=== PATIENT | male | born 1945 | race Caucasian/White ===

== ENCOUNTER 2018-10-26 18:39 | Inpatient (IN) ==
[2018-10-26 19:24] LABS: PTT 38.8 Seconds (22.3-41.8)
[2018-10-26 19:26] LABS: BASO# 0.03 X1000 (0.0-0.2); BASO% 0.2 % (0.0-0.8); HEMOGLOBIN 6.1 g/dL (14.0-18.0); IMM GRAN# 0.14 X1000 (0.0-0.04); IMM GRAN% 0.9 % (0.0-0.5); LYMPH# 2.12 X1000 (1.2-3.4); LYMPH% 13.9 % (20.5-51.1); MCH 32.1 PG (27-31); MCHC 33.9 g/dL (33-37); MCV 94.7 FL (81-99); MONO# 0.99 X1000 (0.11-0.59); MONO% 6.5 % (1.7-9.3); NEUT# 11.98 X1000 (1.4-6.5); NEUT% 78.5 % (42.2-75.2); PLT 287 X1000 (130-400); WBC 15.26 X1000 (4.8-10.8)
[2018-10-26 19:29] LABS: INR 6.07; PROTIME 57.9 Seconds (11.0-16.0)
[2018-10-26] MEDS ORDERED: VITAMIN K SUBQ ONE (19:36)
--- NOTE | 2018-10-26 20:13 | Diag Imaging Result Doc PS360 ---
EXAM: CT ABD/PELVIS W/IV CONT ONLY INDICATION: gi bleed TECHNIQUE: This exam was performed using automated exposure control, adjustment of mA or kV according to patient size, and/or use of iterative reconstruction technique. COMPARISON: 07/09/2018 FINDINGS: There is mild subsegmental atelectasis at the lung bases. The gallbladder is contracted and is unremarkable, otherwise. The liver, spleen, pancreas, and adrenal glands are unremarkable. There is a small left renal cyst. The kidneys are unremarkable, otherwise. The urinary bladder is unremarkable. The appendix is normal. There is no evidence of bowel wall thickening. The remainder of the GI tract is unremarkable. There is a stable stent graft repaired abdominal aortic aneurysm. No focal inflammatory changes, free abdominal gas, or free fluid is identified. There is spondylosis throughout the spine. The bony structures are intact. IMPRESSION: Essentially stable CT of the abdomen and pelvis with no evidence of acute pathology. Incidental/nonacute findings detailed above. Electronically signed by Jonnie Melissa 10/26/2018 8:11 PM
[2018-10-26 20:19] LABS: AGAP 14; ALB/GLOB RATIO 1.6; ALBUMIN 3.3 g/dL (3.5-5.0); ALKALINE PHOSPHATASE 36 U/L (32-122); BUN 56 mg/dL (8-22); CALCIUM 8.6 mg/dL (8.8-10.2); CHLORIDE 98 mmol/L (98-107); COSMO 284; CREATININE 1.1 mg/dL (0.7-1.2); ESTIMATED GFR > 60; GLUCOSE 137 mg/dL (70-104); GOT 12 U/L (10-34); GPT 14 U/L (10-44); POTASSIUM 4.8 mmol/L (3.5-5.1); SODIUM 133 mmol/L (136-145); TCO2 21 mmol/L (25-35); TOTAL BILIRUBIN 0.26 mg/dL (0.20-1.00); TOTAL PROTEIN 5.3 g/dL (6.3-8.3)
[2018-10-26] MEDS ORDERED: SODIUM CHLORIDE 0.9% INJ ONE (20:40)
[2018-10-26] MEDS ORDERED: PROTONIX IV ONE (20:40)
--- NOTE | 2018-10-26 20:43 | PROVIDER DOCUMENTATION ---
This chart was entered by Niama Mancini Scribe, acting as scribe for Viral Flowers MD. HPI-Abdominal Pain/GI Problem - General Chief Complaint: Abnormal Lab[s] Stated Complaint: GI BLEED Time Seen by Provider: 10/26/18 19:06 Source: patient, EMS Allergies/Adverse Reactions: Patient Allergies Allergy/AdvReac Type Severity Reaction Status Date / Time cefazolin [From Ancef] Allergy SWELLING Verified 05/29/18 07:26 cephalexin [From Keflex] Allergy SWELLING Verified 05/29/18 07:26 hydromorphone [From Dilaudid] AdvReac Unknown Verified 10/06/18 09:54 Home Medications: Home Medication List Medication Instructions Recorded Confirmed Last Taken Type Pantoprazole [Protonix] 40 mg PO DAILY@0700 03/20/16 10/06/18 05/28/18 History Spironolactone 25 mg PO DAILY 03/20/16 10/06/18 05/28/18 History Apixaban [Eliquis] 5 mg PO BID 05/21/18 10/06/18 05/25/18 History - History of Present Illness-ABD Nature of Presenting Problems: Pt presents to ED w/ reports of lowering H&H and blood in stool for the last 2 days. Pt sts that he feels okay, Pt is a poor historian and is unsure about his hx and exactly why he is here. Pt arrived to ED via EMS from nursing facility. hx of Abdominal Pain Onset Location: reports: LLQ, epigastric Pain Radiation: reports: no radiation Severity in ED: reports: mild Onset/Duration: reports: 2 days ago Timing: reports: still present Activities at Onset: reports: none Exposure to sick contacts?: No Modifying Factors: improves with: nothing Associated Symptoms: reports: denies symptoms Dark Stools Present?: reports: other (reported blood, but not in detail) Bruising or Bleeding Gums?: No Similar Symptoms Previously?: No Recently seen or treated by another doctor?: No Review of Systems - Adult - REVIEW OF SYSTEMS - ADULT Constitutional: denies: chills, fever Eyes: reports: no symptoms reported Ears, Nose, Mouth & Throat: reports: no symptoms reported Cardiovascular: denies: chest pain, edema Respiratory: reports: no symptoms reported. denies: cough, shortness of breath, wheezing Gastrointestinal: reports: abdominal pain. denies: nausea, vomiting Genitourinary: reports: no symptoms reported Musculoskeletal: reports: no symptoms reported. denies: bone pain, back pain Integumentary: reports: no symptoms reported Neurological: reports: no symptoms reported. denies: dizziness/vertigo, headache/migraines Psychiatric: reports: no symptoms reported Endocrine: reports: no symptoms reported Hematologic/Lymphatic: reports: no symptoms reported Allergic/Immunologic: reports: no symptoms reported All Other Systems: Reviewed and Negative Past History - Adult - PAST MEDICAL HISTORY-ADULT Review of Records: reports: Old Records Reviewed, Nursing Assessment Review, Medications Reviewed, Social history reviewed & non-contributory. Major Childhood Illnesses: reports: denies history Cardiovascular: reports: HTN, hyperlipidemia Endocrine/Immune: reports: Diabetes - IMMUNIZATION STATUS Childhood Immunizations: See Nurse Assessment Flu Vaccine: See Nurse Assessment - FAMILY HISTORY Family History: reviewed, not pertinent - SOCIAL HISTORY Smoking: denies, non-smoker Substance Use: none/never Alcohol Use Frequency: rarely Living Situation: care facility Physical Exam-General - PHYSICAL EXAM-ADULT Initial Vital Signs Reviewed: Yes - CONSTITUTIONAL General Appearance: appears well, alert, no apparent distress - EYES Eyes: PERRL/EOMI, pink conjunctivae - HEAD, EARS, NOSE, MOUTH & THROAT HENMT: normocephalic/atraumatic, moist mucous membranes, normal ENT inspection, TMs normal, pharynx normal - NECK Neck: non-tender, full range of motion, supple, normal inspection - RESPIRATORY Respiratory: lungs clear - CARDIOVASCULAR Cardiovascular: regular rate, rhythm - GASTROINTESTINAL (ABDOMEN) Abdominal Exam: normal bowel sounds, soft, other (pt is tender over general abd, but more over LLQ and epigastric areas upon palpation) - LYMPHATIC Lymphatic: no adenopathy - MUSCULOSKELETAL Back Exam: normal inspection, no CVA tenderness, no vertebral tenderness Extremity: normal range of motion, non-tender, normal gait, normal inspection - SKIN Integumentary: normal color, warm/dry - NEUROLOGIC Neurologic: grossly normal - PSYCHIATRIC Psych/Mental Status: normal mood/affect, normal thought content, normal thought process, other (Pt is a poor historian and is minimally confused) Progress - PLAN OF CARE/RESULTS Progress/Plan/Lab Results: Vital Signs - 8 hr 10/26/18 18:53 Temperature 98.2 F Pulse Rate 70 Respiratory Rate 18 Blood Pressure 109/69 O2 Sat by Pulse Oximetry 100 Laboratory Results - last 24 hr 10/26/18 10/26/18 18:55 18:55 WBC 15.26 H RBC 1.90 L Hgb 6.1 L Hct 18.0 L MCV 94.7 MCH 32.1 H MCHC 33.9 RDW Std Deviation 13.0 Plt Count 287 MPV 11.0 H Immature Gran % (Auto) 0.9 H Neut % (Auto) 78.5 H Lymph % (Auto) 13.9 L Hanson % (Auto) 6.5 Eos % (Auto) 0.0 Baso % (Auto) 0.2 Immature Gran # (Auto) 0.14 H Neut # (Auto) 11.98 H Lymph # (Auto) 2.12 Hanson # (Auto) 0.99 H Eos # (Auto) 0.00 Baso # (Auto) 0.03 PT 57.9 H INR 6.07 H* PTT (Actin FS) 38.8 Orders Category Date Time Status CT ABD/PELVIS W/IV CONT ONLY [CT] Stat Exams 10/26/18 19:11 Ordered CBC WITH ELECTRONIC DIFF [HEME] Stat Lab 10/26/18 18:55 Completed COMPREHENSIVE METABOLIC PANEL [CHEM] Stat Lab 10/26/18 18:55 Received OCCULT BLOOD SCREENING [STOOL] Stat Lab 10/26/18 19:07 Uncollected PT [PROTIME WITH INR] [COAG] Stat Lab 10/26/18 18:55 Completed PTT [COAG] Stat Lab 10/26/18 18:55 Completed UA [URINALYSIS] [URINALYSIS] Stat Lab 10/26/18 19:07 Uncollected Result Diagrams: 10/26/18 18:55 10/26/18 18:55 - CONSULTS/PCP/HOSPITALIST Notification #1 *Consult/PCP/Hospitalist*: [place] Time Discussed: 20:35 Consult Disposition: Will see in ED, Admit Departure - Departure Date of Disposition Decision: 10/26/18 Time of Disposition Decision: 20:41 DIAGNOSIS: GI bleeding, INR (international normal ratio) abnormal, Blood loss anemia Disposition: ADMITTED INPATIENT 09 Certified Medical Emergency: Emergent Condition: Serious - Critical Care Note This patient required my direct & personal management of CC.: Yes Total Time (mins): 60 Critical Care Statement: This patient required my direct personal management to treat or rule out processes, the absence of which, could potentiallly result in sudden, clinically significant life or limb threatening deterioration. Attestation - Physician/ CONNIE Attestation Patient care was provided by Advanced Practice Provider:: No The physician spent face to face time with patient:: Yes Advanced Practice Provider documentation review:: Supervising physician onsite and consulted in the evaluation and care of this patient. The physician did have a face to face encounter with the patient. This chart was documented by the indicated scribe, (Naima Mancini, Alena) and accurately reflects the services I performed and decisions made by me, Viral Flowers MD, as attested by the provider's signature.
[2018-10-26] MEDS ORDERED: NS 1,000 ML IV ONE (21:29)
--- NOTE | 2018-10-26 22:14 | HISTORY AND PHYSICAL ---
PRIMARY CARE PHYSICIAN: No primary care physician. REASON FOR ADMISSION: Melenic stool 4 days. Tadeo Mccoy 73-year-old male past medical history of atrial fibrillation, peripheral arterial disease, hypertension, recent CVA 2 weeks ago. He was admitted to [facility] then subsequently discharged to fdc in our area. He was brought in today on account of having heme positive stools. He had been having 4 days history of frequent melenic stools which led to screening him for Hemoccult stools. On account of this being positive he was referred to the ER to address this issue. The patient says he has been feeling having nausea but no vomiting. He has been having some vague abdominal pain, no specific relieving or aggravating factors. He said the melenic stools have stopped today presumably because yesterday according to his he was given some medication for the stools. He admits to feeling weak and dizzy and complains of thirst. He has a longstanding history of dysphagia to solids and usually gets his esophagus "stretched" by GI in the past per the family. He does admit to having shortness of breath with mild exertion over the last couple of days. No bleeding from any other orifice. No chest pain or palpitations. No anginal-type symptoms. REVIEW OF SYSTEMS: No fever, chills, polyuria, 12 system review was done. Positive findings per HPI. ALLERGIES: Cephalosporins, Dilaudid and Swann and Seroquel. HOME MEDICATIONS: Yet to be reconciled. FAMILY HISTORY: Notable for heart disease but no diabetes or bleeding diaphysis. SOCIAL HISTORY: He smokes 1 pack a day but since the [facility]dc he has been on the patch. No alcohol, illicit drug use. SURGICAL HISTORY: He has had AAA repair, spinal surgery, bilateral knee surgery, pacemaker insertion, cataract surgery, neck surgery. LABORATORY WORK: White count 15,000, hemoglobin and hematocrit 6 and 18, platelets 287,000 with 78% neutrophils. Sodium 133, BUN 56, creatinine 1.1, glucose 137, calcium 8.6. PT 57, INR 6. CT of the abdomen and pelvis no evidence of any acute intraabdominal pathology. PHYSICAL EXAMINATION: Blood pressure is 106/70, heart rate 86, temperature is 98.2 degrees, respirations 15, 100% on room air. Chronically ill, pallid elderly man who has some mild degree of expressive aphasia. He is alert and oriented to person, place, and time although he takes a while to answer questions. His affect appears to be somewhat flat. HEENT: Head is normocephalic, atraumatic. NADIA, EOMI. He is anicteric but pale. ENT is grossly normal. No oropharyngeal exudates. He does have some weakness on elevation on his soft palate. No cyanosis. NECK: Supple. No JVD or carotid bruit, no thyromegaly. CHEST: Clear on auscultated. CARDIOVASCULAR: First and second heart sounds are heard. No gallops, murmurs, rubs, rhythm regular. ABDOMEN: Protuberant, soft, surprisingly no tenderness. Bowel sounds are hypoactive, rectal sounds at this time. EXTREMITIES: Patient has no edema, clubbing or cyanosis. Pulses have diminished volume distally in all extremities. They are irregularly irregular. NEUROLOGICAL: Patient has dense left hemiplegia in addition to the aforementioned dysarthria, no other gross cranial nerve deficits. SKIN: Pale. No breakdown, lesions or erythema. MUSCULOSKELETAL: Grossly normal . ASSESSMENT: 1. Upper gastrointestinal bleed probably secondary to elevated INR. 2. Atrial fibrillation on chronic anticoagulation. 3. Elevated INR . 4. Peripheral arterial disease. 5. Hemorrhagic anemia. PLAN: Patient will be admitted and transfused 2 units of packed red blood cells. He has been given vitamin K in the ER and we will support these measures with crystalloid administration. Recheck CBC and PT/INR after transfusion is complete. I suspect he may require maybe 1 or 2 more units depending on what the posttransfusion numbers are. In interim will start patient on IV Protonix, consult Dr. Trinidad, GI on-call. Discontinue Coumadin. Depending on what his other home medications are, he is on antiplatelets will hold this too and would recommend patient undergo EGD to evaluate not only bleeding site but more so to address esophageal problems i.e. dysphagia noted above. cc: Leeanna Santamaria MD [facility]
[2018-10-27] MEDS ORDERED: ZOFRAN IV PRN (00:22)
[2018-10-27] MEDS: SODIUM CHLORIDE 0.9% INJ SCH ×2 (00:49→13:44)
[2018-10-27] MEDS: PROTONIX IV SCH ×2 (00:49→13:43)
[2018-10-27] MEDS: NS 1,000 ML IV SCH ×4 (00:49→22:58)
[2018-10-27 01:51] LABS: URINE SOURCE CLEAN CATCH
[2018-10-27 02:15] LABS: BILIRUBIN URINE NEGATIVE (NEGATIVE); BLOOD URINE NEGATIVE (NEGATIVE); COLOR YELLOW; GLUCOSE URINE NEGATIVE (NEGATIVE); KETONE URINE NEGATIVE (NEGATIVE); LEUKOCYTES URINE NEGATIVE (NEGATIVE); NITRITE URINE NEGATIVE (NEGATIVE); PROTEIN URINE TRACE mg/dL (NEGATIVE); TURBIDITY URINE CLEAR (CLEAR); UR EPITHELIAL CELLS <10 /HPF (<10); URINE BACTERIA NEGATIVE /HPF; URINE RBC <10 /HPF (<10); URINE WBC <10 /HPF (<10); UROBILINOGEN URINE NORMAL (NORMAL)
[2018-10-27 05:40] LABS: HEMATOCRIT 24.5 % (42.0-52.0); HEMOGLOBIN 8.4 g/dL (14.0-18.0)
[2018-10-27] MEDS ORDERED: PNEUMOVAX 23 IM ONE (05:55)
[2018-10-27 06:07] LABS: AGAP 9; BUN 49 mg/dL (8-22); CALCIUM 8.1 mg/dL (8.8-10.2); CHLORIDE 100 mmol/L (98-107); COSMO 279; CREATININE 1.1 mg/dL (0.7-1.2); ESTIMATED GFR > 60; GLUCOSE 99 mg/dL (70-104); POTASSIUM 4.5 mmol/L (3.5-5.1); SODIUM 133 mmol/L (136-145); TCO2 24 mmol/L (25-35)
[2018-10-27] MEDS ORDERED: CALMOSEPTINE OINTMENT TOP PRN (07:05)
[2018-10-27] MEDS: NICODERM PATCH TD SCH (08:29)
[2018-10-27 10:32] LABS: BASO# 0.04 X1000 (0.0-0.2); BASO% 0.3 % (0.0-0.8); EOS# 0.01 X1000 (0.0-0.7); EOS% 0.1 % (0.0-10.0); HEMATOCRIT 24.3 % (42.0-52.0); HEMOGLOBIN 8.3 g/dL (14.0-18.0); IMM GRAN# 0.15 X1000 (0.0-0.04); IMM GRAN% 1.2 % (0.0-0.5); LYMPH# 2.12 X1000 (1.2-3.4); LYMPH% 16.8 % (20.5-51.1); MCH 31.6 PG (27-31); MCHC 34.2 g/dL (33-37); MCV 92.4 FL (81-99); MONO# 1.25 X1000 (0.11-0.59); MONO% 9.9 % (1.7-9.3); MPV 10.2 FL (7.4-10.4); NEUT# 9.08 X1000 (1.4-6.5); NEUT% 71.7 % (42.2-75.2); PLT 221 X1000 (130-400); RBC 2.63 XMIL (4.7-6.1); RDW 13.4 % (11.5-14.5); WBC 12.65 X1000 (4.8-10.8)
[2018-10-27 10:50] LABS: INR 1.55; PROTIME 19.7 Seconds (11.0-16.0)
--- NOTE | 2018-10-27 13:18 | GASTROENTEROLOGY CONSULTATION ---
DATE: 10/27/2018 REASON FOR CONSULTATION: Anemia and melenic stools. HISTORY OF PRESENT ILLNESS: A 73-year-old gentleman whom I know with a history of atrial fibrillation and a history of recent CVA was admitted to [facility] and discharged. He had some dark stool and heme-positive stool, not feeling hungry, has not been eating. He was feeling weak. He has a history of dysphagia, and I had done esophageal stricture dilation in April and I was planning to do one in September, but he was not able to. REVIEW OF SYSTEMS: Otherwise positive for shortness of breath. ALLERGIES: Cephalosporins and Seroquel. FAMILY HISTORY: Positive for heart disease. SOCIAL HISTORY: Smokes 1 pack per day. He is taking patch now because he is in a senior care. SURGICAL HISTORY: AAA repair, spinal surgery, bilateral knee surgery, pacemaker. DIAGNOSTIC STUDIES: White count 15, hemoglobin 6, hematocrit 18. PT 57, INR 6. CT negative. PHYSICAL EXAMINATION: Looks weak, pale. Heart rate 80, blood pressure 106/72, temperature 98 degrees, respiration 18, 100% on room air.HEENT: Conjunctival pallor. Neck: Supple. Trachea midline. Heart and lungs normal. Abdomen: Soft, nontender. Bowel sounds are present. Extremities: No edema. Neurological: Left hemiplegia. IMPRESSION AND PLAN: 1. Possible upper gastrointestinal bleed. 2. Atrial fibrillation. On anticoagulation. 3. Peripheral arterial disease. 4. Anemia. 5. Gastroesophageal reflux disease. 6. Dysphagia. RECOMMENDATION: We will give him diet as needed. Give vitamin K. We will plan on doing an EGD in the morning. cc: Christophe Trinidad MD
--- NOTE | 2018-10-27 13:52 | PROGRESS NOTE ---
DATE: 10/27/2018 SUBJECTIVE: This morning, Mr. Mccoy was seen in his hospital bed. The was at the bedside at the time of the encounter. He refers to be feeling a whole lot better and much stronger. He has not had any more black stools. OBJECTIVE: Vital Signs: Blood pressure is 110/44, pulse is 72, respirations are 16, temperature is 98.4 degrees, the patient was saturating 98% on room air. General Examination: Mr. Mccoy is a 73-year-old, gentleman. He was in bed. No distress. HEENT: Mucosa is pink and moist. Anicteric. Acyanotic. Neck: Supple. Chest: Good air entry bilaterally. No crepitations. No rhonchi. Cardiovascular: Regular rate and rhythm with occasional extrasystolic beats. No murmurs, no rubs, no gallops. Abdomen: Soft. Distended but nontender. Bowel sounds present. Extremities: No pedal edema. Distal pulses present. HEARING AID FITTER: Patient is awake, alert. Does have a remarkable left-sided hemiplegia with the mouth also deviating towards the right side. Musculoskeletal: There are bilateral knee scars consistent with knee surgeries. Current Lab Data: Reviewed. WBC is 12.65, hemoglobin is up to 8.3 from 6.1, platelet count is 221,000. Chemistry is also reviewed. Sodium is 133. Rest of chemistry is completely normal. I did not see any EKG in the chart. A CT scan of the abdomen and pelvis was essentially stable. No evidence of acute pathology. ASSESSMENT: 1. Symptomatic anemia secondary to a gastrointestinal bleed. The patient is status post 2 units of packed red blood cell transfusion. Hemoglobin and hematocrit are remarkably improved. He denies any more tarry black stool. Gastroenterology has been consulted. 2. Gastrointestinal bleed, likely due to mucosal bleeding induced by Coumadin over- anticoagulation. Gastroenterology has been consulted. The patient is currently on a proton pump inhibitor. 3. Supratherapeutic INR due to Coumadin therapy. INR was 6.7 on admission and is currently 1.5. The patient was given a one-time dose of vitamin K. 4. History of cerebrovascular accident with left-sided hemiplegia. This apparently happened on 10/06/2018. The patient was admitted in [facility]. It was theorized that the etiology of this stroke was atrial fibrillation. The patient was on Eliquis at the time the stroke happened. I think after the extensive workup in that facility, a decision was made to start him on Coumadin. He has been on Coumadin since he left [facility]. He has been in [facility], getting physical therapy. 5. History of atrial fibrillation. The patient is status post pacemaker and was on Eliquis. However, even on Eliquis, he developed a stroke. According to him, Eliquis was also very expensive so the physicians in [facility] decided to switch him to Coumadin. PLAN: In general, Mr. Mccoy is fairly stable at this point. He denies any more tarry black stools. He has been evaluated by GI and I think there is a plan for an endoscopic intervention tomorrow. The patient will be kept NPO, withhold any anticoagulation for now until the GI tract is evaluated. Mr. Mccoy obviously has a very high [id number] score for recurrent stroke so he definitely needs to be on a blood thinner once the current GI bleed has completely been controlled and that the GI evaluation is negative for any possible recurrent bleed. We will wait for the GI evaluation and then go from there. He still plans to go back on Coumadin. In terms of disposition, Mr. Mccoy is coming from [facility]. Whenever he is stable, he will be transitioned back to that rehab. cc: Dami Hunter MD [facility]
[2018-10-27] MEDS: HALDOL IV PRN (20:28)
[2018-10-28] MEDS: PROTONIX IV SCH ×2 (02:25→17:43)
[2018-10-28] MEDS: SODIUM CHLORIDE 0.9% INJ SCH ×2 (02:25→17:44)
[2018-10-28] MEDS: HALDOL IV PRN (04:32)
[2018-10-28] MEDS: NS 1,000 ML IV SCH ×3 (06:04→22:02)
[2018-10-28 07:53] LABS: BASO# 0.04 X1000 (0.0-0.2); BASO% 0.4 % (0.0-0.8); EOS# 0.05 X1000 (0.0-0.7); EOS% 0.6 % (0.0-10.0); HEMATOCRIT 23.2 % (42.0-52.0); HEMOGLOBIN 7.7 g/dL (14.0-18.0); IMM GRAN% 1.1 % (0.0-0.5); LYMPH# 1.63 X1000 (1.2-3.4); LYMPH% 18.1 % (20.5-51.1); MCH 31.4 PG (27-31); MCHC 33.2 g/dL (33-37); MCV 94.7 FL (81-99); MONO# 0.82 X1000 (0.11-0.59); MONO% 9.1 % (1.7-9.3); MPV 10.3 FL (7.4-10.4); NEUT# 6.36 X1000 (1.4-6.5); NEUT% 70.7 % (42.2-75.2); PLT 234 X1000 (130-400); RBC 2.45 XMIL (4.7-6.1); RDW 13.8 % (11.5-14.5)
[2018-10-28 07:59] LABS: AGAP 6; ALB/GLOB RATIO 1.5; ALBUMIN 2.9 g/dL (3.5-5.0); ALKALINE PHOSPHATASE 37 U/L (32-122); BUN 19 mg/dL (8-22); CALCIUM 8.3 mg/dL (8.8-10.2); CHLORIDE 109 mmol/L (98-107); COSMO 279; ESTIMATED GFR > 60; GLUCOSE 89 mg/dL (70-104); GOT 17 U/L (10-34); GPT 13 U/L (10-44); POTASSIUM 3.8 mmol/L (3.5-5.1); SODIUM 139 mmol/L (136-145); TCO2 24 mmol/L (25-35); TOTAL BILIRUBIN 0.61 mg/dL (0.20-1.00); TOTAL PROTEIN 4.9 g/dL (6.3-8.3)
[2018-10-28] MEDS ORDERED: DIPRIVAN 1% ONE (09:30)
[2018-10-28] MEDS ORDERED: XYLOCAINE-MPF 2% ONE (09:31)
--- NOTE | 2018-10-28 11:50 | OPERATIVE NOTE ---
PROCEDURE DATE: 10/28/2018 ADMITTING PHYSICIAN: Dr. Kendrick PROCEDURE: Esophagogastroduodenoscopy with gastric biopsy. PREOPERATIVE DIAGNOSES: 1. Gastrointestinal bleed, melena. 2. Supratherapeutic INR on Coumadin, which has corrected. Current INR is 1.55 . 3. Recent history of cerebrovascular accident, admitted to [facility], and was started on Coumadin. 4. He has history of dysphagia. He had esophageal stricture dilation in April. 5. Anemia. Required 2 units of blood transfusion. 6. Smoker of 1 pack per day. POSTOPERATIVE DIAGNOSIS: 1. Esophagitis, distal esophagus. 2. Esophageal stricture, about 7 to 8 cm in distal esophagus, with surrounding esophagitis. Z- line was at 44 cm. 3. Evidence of gastritis of body of antrum. This was biopsied. 4. Normal fundus, cardia, incisura on retroflexion. 5. There was evidence of moderate degree of duodenitis at the duodenal bulb. 6. Normal 2nd portion of duodenum. ESTIMATED BLOOD LOSS: Minimal. COMPLICATIONS: None. ANESTHESIA: Monitored anesthesia care per the anesthesiologist. SPECIMEN: Gastric antral biopsy. DESCRIPTION OF PROCEDURE: After informed consent from the patient explaining the risks, benefits, indications, and alternatives to the procedure, patient was prepared for EGD. The risks of the procedure, including infection, bleeding, pain, trauma to the surrounding structures, perforation, and , were explained the patient, among others, and he acknowledged and agreed to proceed. The patient was brought to the OR. He was turned on the left lateral position. A bite block was placed in patient's mouth. After adequate monitored anesthesia care, the scope was introduced all the way to second portion of the duodenum. The esophagus was normal in the proximal and middle thirds. The distal esophagus showed evidence of a long esophageal stricture with surrounding esophagitis. This caused resistance to passage of the EGD scope. Eventually we were able to pass the scope and the GE junction was noted at 44 cm. There was evidence of esophagitis in the distal esophagus LA grade 3. Stomach showed evidence of mild erythema in the body of the antrum which was biopsied. Retroflexion revealed normal fundus, cardia, incisura. The duodenal bulb showed evidence of evidence of erythema, friability, and erosions suggesting a moderate degree of erosive duodenitis. Normal second portion of the duodenum was noted. The air and scope were withdrawn. The patient tolerated the procedure well and currently monitored in the OR in stable condition. RECOMMENDATIONS: The patient will be on clear liquid diet today and advance to full liquid diet and then advance only to soft diet. The patient has a long esophageal stricture. He will need EGD with dilation in 2 weeks once the esophagitis has healed. In the interim, we will keep him on Protonix twice daily for 3 months. We will start him on Carafate 1 g 6 hours for 6 weeks. We will start him on multivitamin once daily and iron C b.i.d. Patient counseled quit smoking. The patient will continue to follow gastroesophageal reflux lifestyle changes. The patient had recent CVA with residual left hemiplegia, was admitted at [facility], and put on Coumadin. Thank you for allowing us to participate in the care of your patient. Please call with further questions. cc: Harlan Cain MD [facility]
[2018-10-28] MEDS: CARAFATE PO SCH ×2 (12:39→17:30)
[2018-10-28] MEDS: TYLENOL PO PRN ×2 (12:39→21:19)
[2018-10-28] MEDS: NICODERM PATCH TD SCH (12:40)
--- NOTE | 2018-10-28 13:06 | PROGRESS NOTE ---
DATE: 10/28/2018 SUBJECTIVE: Patient reports feeling fine. Reports mild nausea. OBJECTIVE: Vital Signs: Temperature 97.9 degrees, heart rate 80, respiratory rate 20, blood pressure 101/77, O2 saturation 92% on room air. General examination: This is a chronically ill- appearing, 73-year-old male, lying in bed, in no acute distress. Cardiovascular: S1, S2 heard. No. No murmurs, gallops or rubs. Regular rate and rhythm. Respiratory: Clear bilaterally to auscultation. No work of breathing or using accessory muscles. Abdomen: Soft, a little bit distended, but nontender to palpation. Bowel sounds present. No organomegaly. Extremities: No clubbing, cyanosis, or edema. Peripheral pulses present in both legs. Neurological: Patient has residual left-sided hemiparesis with mild tongue deviating to the right side. The patient is awake, does follow basic commands. LABORATORY DATA: White cell count 9, hemoglobin 10.7, hematocrit 23.2, platelets 434,000. Normal BMP. ASSESSMENT AND PLAN: 1. Symptomatic anemia secondary to gastrointestinal bleeding. Patient has been scoped today and the EGD shows esophagitis in the distal esophagus with esophageal stricture with evidence of gastritis and moderate degree of duodenitis. At this time, we are going to monitor this patient closely. We will do a CBC tomorrow and if hemoglobin drops to 7 or below, we will transfuse 1 unit of blood. 2. Coumadin toxicity. The patient has been on Coumadin because of atrial fibrillation. INR at admission was 6.5. At this point, after vitamin K, the INR is 1.4. At this point, we will continue to monitor INR daily. 3. History of cerebrovascular accident, aware. 4. History of atrial fibrillation. At this point, the patient is not on any blood thinner of course because of GI bleeding. At this point, we will continue to hold blood thinners until the patient is clear by Gastroenterology. cc: Hugh Man MD
[2018-10-28] MEDS: ICAR-C PO SCH (21:19)
[2018-10-29] MEDS: NS 1,000 ML IV SCH ×2 (00:30→05:30)
[2018-10-29] MEDS: TYLENOL PO PRN (06:00)
[2018-10-29] MEDS: SODIUM CHLORIDE 0.9% INJ SCH (06:00)
[2018-10-29] MEDS: CARAFATE PO SCH ×3 (06:00→10:58)
[2018-10-29] MEDS: PROTONIX IV SCH (06:00)
[2018-10-29 06:48] LABS: HEMATOCRIT 23.2 % (42.0-52.0); HEMOGLOBIN 7.6 g/dL (14.0-18.0); MCH 32.3 PG (27-31); MCHC 32.8 g/dL (33-37); MCV 98.7 FL (81-99); MPV 9.9 FL (7.4-10.4); RBC 2.35 XMIL (4.7-6.1); RDW 14.6 % (11.5-14.5); WBC 8.37 X1000 (4.8-10.8)
[2018-10-29] MEDS: HALDOL IV PRN (08:33)
[2018-10-29] MEDS: ICAR-C PO SCH (08:33)
[2018-10-29] MEDS: NICODERM PATCH TD SCH (08:33)
[2018-10-29] MEDS ORDERED: CENTRUM SILVER PO SCH (09:00)
--- NOTE | 2018-10-29 11:01 | DISCHARGE SUMMARY ---
ADMISSION DATE: 10/26/2018 DISCHARGE DATE: 10/29/2018 DISPOSITION: [facility]. FOLLOW-UP: 1. Dr. Trinidad. 2. The medical staff at [facility]. CONSULTATION DURING THIS ADMISSION: GI was consulted, patient was seen by Dr. Cain. INVASIVE PROCEDURE DONE DURING THIS ADMISSION: EGD with gastric biopsy was done by Dr. Cain. DIAGNOSES AT THE TIME OF ADMISSION: 1. Upper gastrointestinal bleed. 2. Atrial fibrillation on chronic anticoagulation. 3. Elevated INR. 4. Peripheral artery disease. 5. Hemorrhagic anemia. DIAGNOSES AT THE TIME OF DISCHARGE: 1. Symptomatic anemia on presentation secondary to gastrointestinal bleed. The patient required 2 packed red blood cell transfusions. Hemoglobin and hematocrit is now fairly stable. 2. Gastrointestinal bleed. The patient is status post esophagogastroduodenoscopy. Findings reveal esophagitis and duodenitis. 3. Supratherapeutic INR on presentation due to Coumadin therapy; this was reversed. 4. History of cerebrovascular accident with left-sided hemiplegia. 5. Chronic atrial fibrillation. Patient is status post pacemaker on Coumadin anticoagulation. DISCHARGE MEDICATIONS: 1. Pantoprazole 40 mg b.i.d. 2. Spironolactone 25 mg daily. 3. Multivitamin. 4. Iron. 5. Carafate 1 g p.o. q. 6 hours. 6. Coumadin 2.5 p.o. at bedtime. SPECIAL RECOMMENDATION: Mr. Mccoy to repeat an INR on , 2 days from now, and let them adjust the Coumadin therapy accordingly. He is also advised to keep the INR between 2 to 3. PRESENTING COMPLAINT: Melanic stool for 4 days. HISTORY OF PRESENTING COMPLAINT: Mr. Mccoy is a 73-year-old gentleman with a history of peripheral artery disease, atrial fibrillation, hypertension, who was admitted to [facility] about 2 weeks ago because of CVA with left-sided hemiplegia. Patient was subsequently transferred to [facility] for rehab. Over there, he was noted to have melenic stool and felt dizzy. He was brought to the emergency department, where he was found to have a hemoglobin of 6.1. He was group and crossmatched and transfused 2 PRBCs. He was also given IV vitamin K and was subsequently admitted. HOSPITAL COURSE: Mr. Mccoy was admitted to the medical floor, was started on PPI, IV and anticoagulation was withheld. Coumadin effect was reversed with vitamin K. Mr. Mccoy was seen by Gastroenterology. A decision was made to do an EGD which was successfully done. The report in the chart reveals esophagitis, also esophageal stricture at about 7 to 8 cm in distal esophagus. There was also some evidence of gastritis of the body of the antrum. There was evidence of moderate degree of duodenitis at the duodenal bulb. The second portion of the duodenum was normal. Mr. Mccoy continued on the IV PPI. H and H was trended which remained fairly stable. He denied any more dizziness and no more melenic stools. This morning, Mr. Mccoy feels a lot better. He has a CHADS-Vasc score of at least 3. He had a recent stroke with a left-sided hemiplegia and, as a result, since the EGD did not show any acute bleed, we think it is reasonable to restart him back on his anticoagulation to prevent any further strokes. Discussions were held with him and the at the bedside. Did explain the risks involved and they chose to be on anticoagulation. Of note, Mr. Mccoy used to be on apixaban, but because of cost they have decided to switch to Coumadin, and that is what he was discharged on from [facility]. DISCHARGE DISPOSITION: This morning, his vitals are blood pressure 114/48, pulse is 60, respiration is 16, temperature 98.5 degrees, completely asymptomatic. He is going to be discharged to [facility] to continue with physical baptism. TIME SPENT FOR DISCHARGE: 37 minutes. cc: MD Christophe Kennedy MD
[2018-10-29 12:45] VITALS: BP 123/60
== END 2018-10-29 12:58 | DRG 378 ==
LOC: ED 18:39 → 4N 22:13 → SUATTDRO 22:13
PROVIDERS: ATTEND Internal Medicine
CPT/HCPCS: 36430; 74177; 80048; 80053; 81001; 85014; 85018; 85025; 85027; 85610; 85730; 86850; 86900; 86901; 86920; 88305; 88312; 90732; 96372; 99285; A9270; C9113; J1630; J3430; J7030; P9016; Q9967; S0164